=== PATIENT | female | born 1955 | race Caucasian/White ===

== ENCOUNTER 2024-09-11 06:31 | Observation (INO) ==
--- NOTE | 2024-08-09 10:17 | PAT Medication Instructions ---
Medication Instructions Date of Service August 09, 2024 Home Medications Medication Instructions Recorded epinephrine 0.3 mg/0.3 mL 0.3 mg (0.3 mL) IM .COMPLEX PRN 06/17/23 injection, auto-injector anaphylaxis #2 ea rosuvastatin 5 mg tablet See Rx Instructions .Route 05/20/24 .COMPLEX #36 tabs Wheeled Walker #1 ea 07/12/24 multivitamin 1 tab PO QAM xqsns-5k-dpb-epa-fish oil 120 mg-180 mg-60 mg-1,200 mg capsule, DR (Fish Oil) 1 cap PO QAM aspirin 81 mg tablet,delayed release 81 mg PO QAM glucosamine-chondroitin 250 mg-200 mg tablet (Osteo Bi-Flex) 1 tab PO DAILY epinephrine 0.3 mg/0.3 mL injection, auto-injector 0.3 mg (0.3 mL) IM .COMPLEX PRN Saccharomyces boulardii 250 mg capsule (Daily Probiotic (S. boulardii)) 250 mg PO BID rosuvastatin 5 mg tablet See Rx Instructions .Route .COMPLEX coenzyme Q10 100 mg capsule (Co Q-10) 100 mg PO DAILY psyllium husk 0.52 gram capsule 0.52 g PO PM Continue as directed rosuvastatin 5 mg tablet See Rx Instructions .Route .COMPLEX epinephrine 0.3 mg/0.3 mL injection, auto-injector 0.3 mg (0.3 mL) IM .COMPLEX PRN(if needed) ASK your prescriber and surgeon aspirin 81 mg tablet,delayed release 81 mg PO QAM STOP taking 2 weeks before surgery (or as soon as possible if surgery is within 2 weeks) tmwcr-6f-dik-epa-fish oil 120 mg-180 mg-60 mg-1,200 mg capsule, DR (Fish Oil) 1 cap PO QAM glucosamine-chondroitin 250 mg-200 mg tablet (Osteo Bi-Flex) 1 tab PO DAILY coenzyme Q10 100 mg capsule (Co Q-10) 100 mg PO DAILY DO NOT take the morning of surgery multivitamin 1 tab PO QAM Saccharomyces boulardii 250 mg capsule (Daily Probiotic (S. boulardii)) 250 mg PO BID Take evening before surgery Saccharomyces boulardii 250 mg capsule (Daily Probiotic (S. boulardii)) 250 mg PO BID psyllium husk 0.52 gram capsule 0.52 g PO PM Other Notes NOTHING TO EAT OR DRINK AFTER MIDNIGHT. If you have any questions please call us at [phone] or [phone] or [phone] or [phone]
--- NOTE | 2024-08-20 08:23 | Anesthesiology Consultation ---
Date of Service August 20, 2024 Assessment & Plan (1) Encounter for pre-operative examination: - Outpatient joint assessment: Patient is currently scheduled for inpatient pathway. If re-evaluated and patient/surgeon requests outpatient pathway, patient is not ideal candidate for outpatient joint program from anesthesia standpoint. - Case discussed in detail with Dr. Choudhury who advised patient is acceptable to proceed and nothing further is needed from his standpoint. Chart Review Chart Review: Acceptable Risk for Surgery and Patient seen in Pre Admission Testing Teaching & Discussion Pre-Anesthesia Teaching/Discussion Notes: Instructed NPO after midnight before surgery, except medications with 15 cc of water. Medication instructions provided according to the PAT guidelines. History Surgery Operation Date: 09/11/24 10:40 Proposed Procedures p Right Total Knee Arthroplasty - Alexi Alvares MD Height/Weight Height: 5 ft 4 in Weight: 103.4 kg Allergies Allergy/AdvReac Type Severity Reaction Status Date / Time No Known Allergies Allergy Verified 08/07/24 10:59 Medications Home Medications Medication Instructions Recorded Confirmed Last Taken multivitamin 1 tab PO QAM 08/21/19 08/07/24 03/05/23 lwjrk-6f-quv-epa-fish oil 120 1 cap PO QAM 08/21/19 08/07/24 03/05/23 mg-180 mg-60 mg-1,200 mg capsule, (Fish Oil) aspirin 81 mg tablet,delayed 81 mg PO QAM 03/06/23 08/07/24 03/05/23 release glucosamine-chondroitin 250 mg-200 1 tab PO DAILY 03/06/23 08/07/24 03/05/23 mg tablet (Osteo Bi-Flex) epinephrine 0.3 mg/0.3 mL 0.3 mg (0.3 mL) IM .COMPLEX PRN 06/17/23 08/07/24 Unknown injection, auto-injector anaphylaxis #2 ea Saccharomyces boulardii 250 mg 250 mg PO BID 03/19/24 08/07/24 Unknown capsule (Daily Probiotic (S. boulardii)) rosuvastatin 5 mg tablet See Rx Instructions .Route 05/20/24 08/07/24 Unknown .COMPLEX #36 tabs Wheeled Walker #1 ea 07/12/24 07/12/24 Unknown coenzyme Q10 100 mg capsule (Co 100 mg PO DAILY 08/07/24 08/07/24 Unknown Q-10) psyllium husk 0.52 gram capsule 0.52 g PO PM 08/07/24 08/07/24 Unknown phytosterol 300 mg-pantethine 100 cap PO 08/20/24 Unknown mg capsule (CholestOff Complete) Additional Notes: Patient was instructed on holding cholestoff complete 2 weeks before surgery. This was also written on provided medication instructions. She denied additional medications or supplements. Past Medical History Medical History Eczema History of asthma resolved, no inhalers per pt History of COVID-19 (~2019) denies hospitalization, symptoms resolved History of ductal carcinoma in situ (DCIS) of breast "Abnormal right breast mammogram Status post stereotactic vacuum-assisted core biopsy 02/06/2014 revealing DCIS Estrogen receptor positive and progesterone receptor positive Status post needle localization partial mastectomy 02/26/2014 revealing DCIS, stage pTisNX Status post completion of radiation therapy 05/31/2014 received 6120 cGy" denies limb restriction Hyperlipidemia Mitral regurgitation mild per 08/2023 echo Patient denies h/o stroke, seizures, heart attack, heart failure, DM, HTN, blood clots/DVTs or blood transfusions. Exercise / Class Metabolic Activity II 4-5 Yardwork/Stairs/Walk up hill (denies chest discomfort or shortness of breath with one flight of stairs) Past Family History Family History Father Myocardial infarction Brother Prostate cancer Denies family history of Ovarian cancer Diabetes Breast cancer Colorectal cancer Hypertension Past Surgical History Surgical History H/O breast biopsy (~1996) right History of ankle surgery left History of bilateral tubal ligation History of colonoscopy History of laparoscopy Hx of LASIK Hx of vein stripping S/P cataract surgery bilat S/P lumpectomy, right breast (02/26/14) S/P SCOTT-BSO Past Anesthesia History No Hx of Anesthesia Complications and No Family Hx of Anesthesia Complications History of PONV No Hx of PONV and No Hx of Motion Sickness Social History Smoking Status: Never smoker Do You Dip or Chew Tobacco: No Hx Alcohol Use: Yes Alcohol type: beer and wine alcohol intake frequency: holidays/special occasions only Hx Substance Use: No substance use type: does not use Review of Systems Snoring, denies witnessed apneas. Patient reports onset of abdominal pain, diarrhea and headache 4 days ago with resolution 2-3 days later-states symptoms fully resolved. Patient denies chest pain, shortness of breath, dyspnea on exertion, reflux, fever, chills, cough, wheezing, or palpitations. Physical Exam Vital Signs Vitals BP 148/80 P 62 TEMP 98.1 SP02 94% on RA RESP 19 Physical Patient resting comfortably in chair in no acute distress, alert and oriented, responding appropriately throughout visit Full cervical extension range of motion without pain TMD 3 finger breadths Mallampati Score 3 Dentition: several implants, several caps/crowns, denies chipped or loose teeth, or bridges Lungs: normal respiratory effort. Good air movement, clear throughout to auscultation, no adventitious breath sounds Cardiac: regular rate and rhythm, 2/6 systolic murmur, no gallops or rubs Carotid arteries: negative bruit bilat Lab Results Anesthesia Preop Results Results Anesthesia Widget: WBC 5.24 K/ul (4.8-10.8) 08/20/24 Hgb 13.7 g/dl (12.0-16.0) 08/20/24 Hct 42.3 % (37.0-47.0) 08/20/24 Plt 191 K/uL (130-400) 08/20/24 Na 142 mmol/L (136-145) 08/20/24 K 4.4 mmol/L (3.5-5.1) 08/20/24 Cl 105 mmol/L (98-107) 08/20/24 CO2 32 mmol/L (21-32) 08/20/24 BUN 13 mg/dl (6-23) 08/20/24 Creat 0.69 mg/dl (0.6-1.2) 08/20/24 Glucose Level 105 mg/dl (70-99(Fasting)) H 08/20/24 PT 10.8 Seconds (9.0-12.0) 08/20/24 PTT 26 Seconds (21-31) 08/20/24 INR 1.0 (0.9-1.1) 08/20/24 Blood Type A Positive 08/20/24 Antibody Screen NEGATIVE 08/20/24 Testing Electrocardiogram Date: 08/20/24 Sinus bradycardia, rate 58 bpm Left anterior fascicular block Moderate voltage criteria for LVH, may be normal variant Possible anterior infarct, age undetermined Chest X-Ray Date: 08/20/24 No significant abnormality detected. Echocardiogram Date: 09/01/23 EF 55-60% No regional wall motion abnormalities Mild cLVH Mild mitral regurgitation Grade I diastolic dysfunction
--- NOTE | 2024-09-03 17:27 | History & Physical Report ---
Date of Service September 03, 2024 Assessment & Plan (1) Degenerative arthritis of knee, bilateral: 68-year-old female with advanced bilateral knee DJD right side more symptomatic than the left. She has failed conservative treatment. She would like to proceed with right knee replacement. Plan: Fannie to take her to the operating room and do a right knee replacement. The risks Mente this procedure explained and she understands. Informed consent was obtained. She will stay in the hospital overnight. Likely discharge to home with some home health and her 's assistance. He is apparently retiring here shortly and should be available to help. (2) History of breast cancer: (3) Hyperlipidemia: History of Present Illness Chief Complaint: . Bilateral knee pain right side greater than the left. Primary Care Provider: Bobbi Morel MD . Patient is a 68-year-old female referred by Dr. Henderson for treating her knees. She is got a long history of bilateral knee pains and discomfort describes gotten worse over time. She has been through extensive conservative treatment which would become less successful. Injections do not help much. She feels that this contributes some of her weight gain of about 12 pounds over the past several months to a year. She had viscosupplementation which did not help at all. The pain is global. The more she is up and onto more it hurts. Is limiting her activities. She like to have her knee fixed. Allergies Allergy/AdvReac Type Severity Reaction Status Date / Time No Known Allergies Allergy Verified 08/07/24 10:59 Home Medications Medication Instructions Recorded Confirmed Type multivitamin 1 tab PO QAM 08/21/19 08/07/24 History wjsjp-0p-tng-epa-fish oil 120 1 cap PO QAM 08/21/19 08/07/24 History mg-180 mg-60 mg-1,200 mg capsule, (Fish Oil) aspirin 81 mg tablet,delayed 81 mg PO QAM 03/06/23 08/07/24 History release glucosamine-chondroitin 250 mg-200 1 tab PO DAILY 03/06/23 08/07/24 History mg tablet (Osteo Bi-Flex) epinephrine 0.3 mg/0.3 mL 0.3 mg (0.3 mL) IM .COMPLEX PRN 06/17/23 08/07/24 Rx injection, auto-injector anaphylaxis #2 ea Saccharomyces boulardii 250 mg 250 mg PO BID 03/19/24 08/07/24 History capsule (Daily Probiotic (S. boulardii)) rosuvastatin 5 mg tablet See Rx Instructions .Route 05/20/24 08/07/24 Rx .COMPLEX #36 tabs Wheeled Walker #1 ea 07/12/24 07/12/24 Rx coenzyme Q10 100 mg capsule (Co 100 mg PO DAILY 08/07/24 08/07/24 History Q-10) psyllium husk 0.52 gram capsule 0.52 g PO PM 08/07/24 08/07/24 History phytosterol 300 mg-pantethine 100 cap PO 08/20/24 History mg capsule (CholestOff Complete) Past Med/Surg History Problem List Encounter for pre-operative examination Degenerative arthritis of knee, bilateral History of breast cancer Hyperlipidemia Eczema (Chronic) Medical History Mitral regurgitation mild per 08/2023 echo Hyperlipidemia History of COVID-19 (~2019) denies hospitalization, symptoms resolved History of ductal carcinoma in situ (DCIS) of breast "Abnormal right breast mammogram Status post stereotactic vacuum-assisted core biopsy 02/06/2014 revealing DCIS Estrogen receptor positive and progesterone receptor positive Status post needle localization partial mastectomy 02/26/2014 revealing DCIS, stage pTisNX Status post completion of radiation therapy 05/31/2014 received 6120 cGy" denies limb restriction History of asthma resolved, no inhalers per pt Eczema Surgical History History of bilateral tubal ligation S/P cataract surgery bilat Hx of vein stripping History of ankle surgery left History of colonoscopy History of laparoscopy Hx of LASIK H/O breast biopsy (~1996) right S/P SCOTT-BSO S/P lumpectomy, right breast (02/26/14) Family History Father Myocardial infarction Brother Prostate cancer Denies family history of Ovarian cancer Diabetes Breast cancer Colorectal cancer Hypertension Social History Smoking Status: Never smoker Second Hand Exposure: No; Do You Dip or Chew Tobacco: No; Tobacco Cessation Education Requested by Patient: No Hx Alcohol Use: Yes Alcohol type: beer and wine Alcohol Intake Frequency: 2-4 x/Month Hx Substance Use: No Preferred Language: Belarusian Communication Ability: Effective Visual Impairment: No Limitations Hearing Ability: Normal Wharf Laborer Required: No Beliefs That Will Affect Care: None marital status: Current Living Situation: Spouse current occupational status: retired current occupation: used to own and operate storage/apartments How many Children do You have: 3 Other Information That Helps Us Care for You: No Feels Safe at Home: Yes Safety Concerns: Feels Safe At This Time Childhood Exposure to Second-Hand Smoke: No Diet: regular caffeine: Yes during the past year weight has: decreased > 10 lbs Dental Care, Regularly: Yes Physical Activity Frequency: Daily Seatbelt Use: always Sunscreen Use: No Assistive Devices: Glasses Review of Systems All systems reviewed & are unremarkable except as noted in HPI & below. Physical Exam . Physical examination was a pleasant middle-aged female but looks be in pretty good health. Examination both rogdi-xdjn-hxo patient ambulates independently. Got varus alignment to both knees. She got bony perjury medially. Some slight tenderness medially on both sides. Range of motion is symmetric with about a 5 degree flexion contracture and bends to 120 bilaterally. No particular pain with hip motion on either side. She is neurologically intact. Constitutional WD/WN, vitals as above Neck trachea midline, no thyromegaly Respiratory normal respiratory effort, lungs clear to auscultation Cardiovascular RRR, no murmur, no edema Gastrointestinal (Abdomen) normal bowel sounds, soft, nontender, no hepatosplenomegaly Results & Data Results & Data Laboratory Results . Diagnostic Findings . X-rays of the knees reveal advanced bilateral knee DJD. She got complete loss of medial joint space in both knees. She has subchondral sclerosis. Osteophytes primarily medially. On x-ray of the severity is pretty equal. She got tricompartment disease. PG Care Time/CCT Total # of Minutes Spent Total Time Spent with Patient: Total time spent is greater than 50% in coordination of care (as documented) at patient's floor/unit and/or counseling patient: Coding Level of Care Code None Diagnoses Degenerative arthritis of knee, bilateral M17.0 History of breast cancer Z85.3 Hyperlipidemia E78.5
[2024-09-11] MEDS ORDERED: ROPIVACAINE 0.5% 5 MG/ML 30 ML VIAL ONE (06:32)
[2024-09-11] MEDS ORDERED: BUPIVACAINE 0.5 % 5 MG/1 ML PF 10ML VIAL ONE (06:32)
--- OUTSIDE RECORDS SUMMARY | 2024-09-11 06:40 | External Medical Summary | Summary of Care ---
Author Name Unknown Organization [facility] Address [address] [place] [address] Phone [phone] Care Team Providers Care Road Mechanic Name Role Phone Bobbi Morel MD Primary Care Provider Encounter Details Date Type Department Care Team (Late st Contact Info) Description 08/27/2024 Population Health External Data Unspecified Department Allergies No known active allergiesdocumented as of this encounter (statuses as of 08/27/2024) Medications LORATADINE 10 MG PO TABS One pill by mouth once a day as needed for allergies 0 Active FISH OIL 1000 MG PO CPDR 1 daily Active OSTEO BI-FLEX ADV TRIPLE ST PO TABS 1 day Ac tive VITAMIN B-6 100 MG PO TABS 1 day Active HAIR/SKIN/NAILS/B IOTIN PO TABS 1day Active ASPIRIN 81 MG PO TABS 1 daily Active clobetasol propionate (TEMOVATE) 0.05 % ointmentIndicatio ns:Lipodermatoscl erosis,Eczema of both hands Apply to hand rash and R lower leg (if desired) 2x daily until resolved (hands)/ improved (R lower leg) 60 g 0 5 Active albuterol (VENTOLIN HFA) 108 (90 BASE) MCG/ACT inhalerIndication s:Asthma, non-allergic, with acute exacerbation Inhale 2 Puffs by mouth 4 times a day. 18 g 5 6 Active Tamoxifen Citrate 20 MG TabletIndications :Ductal carcinoma in situ of right breast Take 1 Tab by mouth daily. 90 Tab 3 6 Active documented as of this encounter (statuses as of 08/27/2024) Active Problems Problem Noted Date Diagnosed Date Encounter for examination fo r normal comparison and control in clinical research program 03/26/2014 Overview (11/24/2020): Trial participant as of: 03/19/14 Project #:[id number] Project Name: NSABP B43: A Phase III Clinical Trial Comparing Trastuzumab Given Concurrently with Radiation Therapy and Radiation Therapy Alone for Women with HER2-Positive Ductal Carcinoma In Situ Resected by Lumpectomy PI Name: Quoc Hairston MD PI CRC Name:[facility] Contact PI or CRC regarding any serious medical event, ER visit, hospitalization, if new Rx given, or billing question Diagnosis changed due to Research Module. Go to Snapshot for study details. Ductal carcinoma in situ of right breast 014 Intermittent asthma with reliever use up to twic e per week 01/29/2010 Overview (01/29/2010): Per Asthma Taxonomy Obesity, Class III, BMI 40-49.9 (morbid obesity) 11/04/2009 Overview (11/04/2009): Per Obesity Taxonomy DYSLIPIDEMIA, GOAL TO BE DETERMINED 07/15/2009 Overview (07/15/2009): Per Lipid Taxonomy. DISLOC SHOULDER NOS-CLOS 10/24/2003 Varicose vein of leg 04/17/2003 Other allergic rhinitis 08/10/2002 Overview (05/31/2017): ICD-10 update of inactive term Menopause 02/06/2002 TOPICAL MED DERMATITIS 02/06/2002 GENERALIZED ANXIETY DIS SYMPTOMS IN BREAST NEC FX TRIMALLEOLAR-CLOSED documented as of this encounter (statuses as of 08/27/2024) Resolved Problems Problem Noted Date Diagnosed Date Resolved Date Asthma with severity to be determined 01/29/2010 06/20/2012 Overview (11/17/2015): Per Asthma Taxonomy ICD-10 update of inactive term ADVANCE DIRECTIVE INFORMATION 05/26/2005 06/11/2024 Overview (05/26/2005): No, Advance Directive brochure given to patient at prior appointment. Morbid obesity, BMI not known 02/24/2005 11/04/2009 Overview (11/04/2009): Per Obesity Taxonomy INTRINSIC ASTHMA UNSPEC 02/24/200501/07 Asthma exacerbation, non-allergic 08/10/2002 01/29/2010 PURE HYPERCHOLESTEROLEM 02/06/200203/2009 Overview (07/15/2009): Per Lipid Taxonomy. Other disorder of menstruati on and other abnormal bleeding from female genital tract 02/22/2001 09/19/2001 Excessive menstruation 02/22/200109/19 documented as of this encounter (statuses as of 08/27/2024) Immunizations Name Administration Dates Next Due Pneumococcal Polysaccharide PPV23 (Pneumovax) TDAP, Age 7 and older, IM (Adacel) 10/24/2008 documented as of this encounter Social History Tobacco Use Types Packs/Day Years Used Date Smoking Tobacco: Never Smokeless Tobacco: Never Alcohol Use Standard Drinks/Week Comments Yes 0 (1 standard drink = 0.6 oz pur e alcohol) very little Comments No Sex and Gender Information Value Date Recorded Sex Assigned at Not on file Legal Sex Female 5:27 AM EST Gender Identity Not on file Sexual Orientation Not on file Occupation Industry Job Start Date Job End Date self employed Not on file Not on file Not on file Not on file Not on file Not on file Not on file documented as of this encounter Plan of Treatment Health Maintenance Due Date Last Done Comments Depression Screening 1968 Hepatitis C Screening 1974 Cologuard 2001 Colonoscopy 2001 Colorectal Cancer Screening 2001 Fecal Occult Blood Test 2001 Sigmoidoscopy 2001 *SPIROMETRY ONCE FOR ASTHMA-ADULT 09/26/2016 Zoster Vaccines (2 of 3) 06/30/2017 05/05/2017 Diabetes Screening 01/23/2018 01/23/2015, 0 02/18/2014, 01/15/2013, Additional history exists Pneumococcal Vaccine: 50+ Years (2 of 2 - PCV) 05/05/2018 05/05/2017, 12/26/2008 DTap/Tdap Vaccines (2 - Td or Tdap) 10/24/2018 10/24/2008 Lipid Panel 01/24/2020 01/23/2015, 12/07, 10/20/2007, Additional history exists COVID-19 Vaccine ( season) 2024 06/17/2023, 05/27/2022, 05/25/2021, Additional history exists Influenza Vaccine (FLU shot) (#1) 2024 06/17/2023 Mammogram 05/25/2025 05/25/2024, 03/08, 01/01/2022, Additional history exists DXA Scan 07/20/2032 07/20/2022, 07/20/2022 HPV (Gardasil) Vaccine Aged Out No lo nger eligible based on patient's age to complete this topic Hepatitis B Vaccine Aged Out No longe r eligible based on patient's age to complete this topic MENINGOCOCCAL (MENACTRA/MENVEO) Aged Out No longer eligible based on patient's age to complete this topic documented as of this encounter Medical Devices Not on filedocumented as of this encounter Care Teams Road Mechanic Relationship Specialty Start Date End Date Bobbi Morel MD [id number] [place] [address] PCP - General Family Medicine 07/20/22 documented as of this encounter
[2024-09-11] MEDS: LR 500ML BOLUS, THEN 15ML/HR IV SCH (07:09)
[2024-09-11] MEDS: ACETAMINOPHEN 500 MG TAB PO SCH ×2 (07:10→13:18)
[2024-09-11] MEDS: METOCLOPRAMIDE HCL 10 MG TABLET PO SCH (07:10)
[2024-09-11] MEDS: dexAMETHasone**PF** 10 MG/ML VIAL IV SCH (07:10)
[2024-09-11] MEDS: CeleBREX 200 MG CAP PO SCH (07:10)
[2024-09-11] MEDS: LR 60ML/HR IV SCH (07:10)
[2024-09-11] MEDS: FAMOTIDINE 20 MG TAB PO SCH (07:10)
[2024-09-11] MEDS ORDERED: MIDAZOLAM HCL 1 MG/ML 2ML VIAL ONE (07:23)
[2024-09-11] MEDS ORDERED: fentaNYL citrate PF 100 MCG/2 ML VIAL ONE (07:23)
[2024-09-11] MEDS ORDERED: ATROPINE SULFATE 0.1 MG/ML 10ML SYR IV PRN (08:16)
[2024-09-11] MEDS ORDERED: ePHEDrine sulfate 50 MG/ML AMP IV PRN (08:16)
[2024-09-11] MEDS ORDERED: fentaNYL citrate PF 100 MCG/2 ML VIAL IV PRN (08:16)
--- NOTE | 2024-09-11 08:47 | History & Physical Bridge Note ---
Date of Service September 11, 2024 History & Physical Bridge Note I have examined the patient, reviewed the History & Physical and in the interval since the performance of the History & Physical I have noted the following changes of clinical significance: no changes noted
[2024-09-11] MEDS: ceFAZolin 2000MG 2,000 MG/15 ML SYR IV SCH ×2 (09:13→17:23)
[2024-09-11] MEDS ORDERED: PROPOFOL IV EMULSION 10 MG/ML 100 ML VIAL IV ONE (09:28)
[2024-09-11] MEDS: ORTHO JOINT ANESTHETIC ONE (09:53)
[2024-09-11] MEDS: ROPIV 0.5% 246mg, Ketorolac 30mg, EPINEPHrine 0.5mg in NSS INFIL SCH (09:53)
[2024-09-11] MEDS: TRANEXAMIC ACID 1,000 MG **IV Intra-op IV SCH (10:11)
--- NOTE | 2024-09-11 11:00 | Operative Report ---
PG Post Operative Report Pre & Post Diagnosis Operation Date: 09/11/24 08:50 Pre-Op Diagnosis: Right Knee Degenerative Joint Disease Post-Op Diagnosis: Right Knee Degenerative Joint Disease I identified the patient and participated in the time-out.: Yes Procedure Operation Date: 09/11/24 08:50 Actual Procedures p Right Total Knee Arthroplasty(Right) - Alexi Alvares MD Surgeon Alexi Alvares MD Personnel Associate Matt Almaguer PA-C Estimated Blood Loss 50 Findings Consistent with Post-Op Diagnosis Operative findings reveal advanced right knee DJD. She had pretty extensive grade 4 cjfl-ke-aspo disease in all 3 compartments most severe in the medial side. Moderate-sized joint effusion. Specimens Right knee sent for pathology. Anesthesia Type Spinal MAC Complications none Disposition Accompanied Patient To Recovery: No Indications Patient is a 68-year-old female whose had a several year history of increasing bilateral knee pain discomfort right side greater than the left. She been through extensive conservative treatment the past which became less successful. X-rays show advanced knee DJD. She elected proceed with total knee arthroplasty. Description of Procedure Operative implants consist of: 1 Biomet Vanguard size 67.5 right posterior stabilized femoral component. 2. Biomet size 71 tibial tray. 3. 10 mm posterior stabilized polyethylene insert. 4. 31 x 8 all poly patella. The patient was taken to the op room, identified, placed on the operative table in the supine position. All conductors were appropriately padded. IV antibiotics fibra anesthesia team. A spinal anesthetic and adductor canal block had been provided in the holding area. A Mcintyre catheter was placed in sterile fashion. A right thigh turn was then placed. The right lower extremity was then prepped and draped in usual sterile fashion. The right leg was elevated and exsanguinated with the use of an Esmarch and a turn was placed at 300 mmHg. An anterior approach of the right knee was then performed through a longitudinal incision centered over the patella. Sharp dissection was got through subcutaneous tissue down to the extensor mechanism. A medial parapatellar arthrotomy incision was made. Some subperiosteal dissection was carried out medially. The fat pad was resected from Neath patella tendon. The lateral patellofemoral ligament was released. Patella subluxated laterally and the knee was flexed. The osteophytes taken off distal femur. The ACL PCL then released from the distal femur. The tibia was subluxated anteriorly. The external tibial alignment jig was then placed on the interface the tibia and adjusted 14 mm medially. The proximal tibial cut was made remove out of millimeter or 2 of bone from the medial side. Some osteophytes taken off medially. The tibia sized to a size 71. Attention drawn the femur. The distal femur then with a sharp drill. Intramedullary canal was suction. A right 5 degree valgus cutting guide was placed. The distal femoral cutting block was pinned in place. Distal femoral cut was made take an additional 3 mm of bone off distal femur. The femur was then sized to a size 67.5. The AP cutting block was pinned parallel to the epicondylar axis which was 3 degrees of external rotation. The anterior cut, anterior chamfer, posterior cut, posterior chamfer cuts were made. The box cutting guide was placed and just slight lateral and the box cut was made. The knee was flexed. The remnants of the medial and lateral menisci were excised. The osteophytes were taken off the posterior aspect the femur. A trial femoral component was placed. The tibial tray was pinned Neli external rotation and the drill and stem punch were used to create defect in proximal tibia for the tibial tray. The knee was then trialed and the 10 mm insert fit most appropriately. Attention then drawn toward the patella. The patella was cleaned of all soft tissue. Patella thickness measured 22 mm in thickness and was cut down to 14. Was sized to a size 31 patella. The lug holes were drilled for 31 patella. The lateral osteophytes removed. Patella button was placed. Knee was taken through range of motion and the patella tracked nicely with no thumbs test. Attention was then drawn toward placing the permanent components. All trial components were removed. A bone plug was placed into this femur limit blood loss. A double batch Palacos G cement was mixed. Biomet ipsyguard size 67.5 right posterior stabilized femoral component, size 71 tibial tray, a 10 mm posterior stabilized polyethylene insert, and a 31 x 8 all poly patella was then cemented in place. The knee was brought out into full extension till cement hardened. Final cement check was then performed. The pericapsular tissues were injected with total of 100 cc of Ortho mix. The patient did receive 1 g tranexamic acid. The tourniquet was then let down for final tourniquet time of 51 minutes. Hemostasis assured use electrocautery. Extensor Meclomen then closed with combination 1 PDS suture and 1 Vicryl suture in a [id number] fashion. Extensor Metros were checked found to be intact with subcutaneous tissue then closed with 2 Dexon suture in a buried interrupted fashion the skin was closed skin lucien. Leg was then cleaned and dried and a sterile dressing with Xeroform, 4 fours, sterile cast padding, Yaya bandage were applied. Patient was then transferred to the recovery room in stable condition. The patient tolerated the procedure well and there were no complications. Matt Almaguer, my physician product development assistant, was present for the entire procedure. His assistance was essential and required for appropriate patient positioning, prepping and draping, surgical exposure, performing the technical details of the operation, placement the implants, closure of the wound, and placement of the sterile bandage. I attest to the content of the Intraoperative Record and any orders documented therein. Any exceptions are noted below.
--- NOTE | 2024-09-11 11:14 | XRay Report ---
XR knee RT 1 or 2V routine CLINICAL HISTORY: Surgical Post Op COMPARISON: None FINDINGS: Right knee prosthesis shows no hardware complication. There is expected soft tissue gas. S kin lucien are present. IMPRESSION: Unremarkable postoperative exam. ACT 112: Negative or not required by law. Electronically signed by: Quoc Jeronimo M.D. 09/11/2024 11:12 AM
--- NOTE | 2024-09-11 12:25 | Anesthesiology Progress Note ---
Date of Service September 11, 2024 Anesthesia Post Procedure Vital Signs Vital Signs: Temp Pulse Resp BP BP Pulse Ox O2 Del Method 09/11/24 11:50 36.4 C L 65 19 121/65 93 Room Air 09/11/24 11:40 58 L 12 112/59 L 96 Room Air 09/11/24 11:30 60 19 124/64 95 Room Air 09/11/24 11:20 60 16 133/62 95 Room Air 09/11/24 11:10 60 13 123/55 L 97 Oxymask 09/11/24 11:00 63 12 122/54 L 97 Oxymask 09/11/24 10:54 36.4 C L 64 15 125/52 L 95 Oxymask 09/11/24 06:59 36.9 C 70 22 150/87 H 95 Room Air O2 Flow Rate 09/11/24 11:50 09/11/24 11:40 09/11/24 11:30 09/11/24 11:20 09/11/24 11:10 2 09/11/24 11:00 6 09/11/24 10:54 6 09/11/24 06:59 Pain Intensity Right Knee: Pain Intensity: 4 Notes Mental Status: alert / awake / arousable Patient Amnestic to Procedure: Yes Nausea / Vomiting: adequately controlled Pain: adequately controlled Airway Patency, RR, SpO2: stable & adequate BP & HR: stable & adequate Hydration State: stable & adequate Neuraxial Anesthesia: was administered and sensory block is resolving Anesthetic Complications: no major complications apparent
[2024-09-11] MEDS ORDERED: METOCLOPRAMIDE HCL INJ 5 MG/ML 2 ML VIAL IV PRN (12:30)
[2024-09-11] MEDS ORDERED: ALUMINUM/MAGNESIUM SUSP 30 ML UDC PO PRN (12:30)
[2024-09-11] MEDS ORDERED: ONDANSETRON INJ 2 MG/ML 2 ML VIAL IV PRN (12:30)
[2024-09-11] MEDS ORDERED: bisacodyL 10 MG SUPP PR PRN (12:30)
[2024-09-11] MEDS ORDERED: HYDROmorphone INJ 0.5 MG/0.5 ML SYR IV PRN (12:30)
[2024-09-11] MEDS ORDERED: NALOXONE HCL 0.4 MG/1 ML VIAL/CARP IV PRN (12:30)
[2024-09-11] MEDS ORDERED: MAGNESIUM HYDROXIDE SUSP 30 ML UDC PO PRN (12:30)
[2024-09-11] MEDS ORDERED: EPINEPHrine INJ 1 MG/ML AMP IM PRN (13:17)
[2024-09-11] MEDS: KETOROLAC TROMETHAMINE 15 MG/ML VIAL IV SCH (13:18)
[2024-09-11] MEDS: oxyCODONE HCL IR 5 MG TAB (IMMEDIATE RELEASE) PO PRN (16:39)
[2024-09-11] MEDS: ASCORBIC ACID 500 MG TAB PO SCH (17:23)
[2024-09-11] MEDS: TRANEXAMIC ACID / 0.7% NACL 1,000 MG/100 ML BAG IV SCH (17:37)
[2024-09-11] MEDS: ASPIRIN 81 MG ECTAB PO SCH (20:57)
[2024-09-11] MEDS: DOCUSATE SODIUM 100 MG CAP PO SCH (20:58)
[2024-09-11] MEDS: SENNA 8.6 MG TAB PO SCH (20:58)
[2024-09-11] MEDS ORDERED: SENNA 8.6 MG TAB PO SCH (21:00)
[2024-09-11] MEDS ORDERED: PSYLLIUM HUSK 0.52 GM PO SCH (21:00)
[2024-09-11] MEDS: SACCHAROMYCES BOULARDII 250 MG CAP PO SCH (21:00)
[2024-09-12 07:30] VITALS: PULSE 62; RESP 18; TEMP 97.7; O2SAT 97
[2024-09-12] MEDS: dexAMETHasone 10 MG in SYRINGE 0 ML IV SCH (07:43)
[2024-09-12] MEDS: MULTIVITAMIN TAB PO SCH (07:44)
[2024-09-12 08:56] LABS: Hematocrit (blood only) 35.1 % (37.0-47.0); Hemoglobin 11.4 g/dl (12.0-16.0); Mean Corpuscular Hemoglobin 30.2 pg (25.0-34.0); Mean Corpuscular Hgb Conc 32.5 g/dL (32.0-36.0); Mean Corpuscular Volume 92.9 fL (80.0-100.0); Mean Platelet Volume 12.7 fL (9.4-12.4); Platelet Count 172 K/uL (130-400); RDW Coefficient of Variation 13.3 % (11.5-14.5); RDW Standard Deviation 45.4 fL (36.4-46.3); Red Blood Count 3.78 M/uL (4.20-5.40); White Blood Count 14.33 K/ul (4.8-10.8)
[2024-09-12] MEDS ORDERED: NON-FORMULARY MEDICATION (Coenzyme Q10 [Co Q-10] 100 mg Capsule) PO SCH (09:00)
[2024-09-12] MEDS ORDERED: NON-FORMULARY MEDICATION (Multivitamin Tablet) PO SCH (09:00)
[2024-09-12] MEDS ORDERED: OMEGA DHA EPA FISH OIL PO SCH (09:00)
[2024-09-12] MEDS ORDERED: [UNRECOGNIZED DRUG - OTHER] PO SCH (09:00)
[2024-09-12] MEDS ORDERED: NON-FORMULARY MEDICATION (Glucosamine-Chondroitin [Osteo Bi-Flex] 250-200 mg Tablet) PO SCH (09:00)
[2024-09-12 09:03] LABS: BUN Creatinine Ratio 23.2 (10-20); Calcium 9.3 mg/dl (8.6-10.3); Creatinine Clr Calc Pharmacy 93.4 ml/min; Potassium 4.1 mmol/L (3.5-5.1)
[2024-09-12 09:33] VITALS: BP 150/87
--- NOTE | 2024-09-12 09:40 | Orthopedic Progress Note ---
Date of Service September 12, 2024 Assessment & Plan (1) Status post total knee replacement, right: (2) Aftercare following joint replacement surgery: Plan 68-year-old woman POD# 1 s/p right total knee replacement, doing well overall. Pain is relative well-controlled. Medically stable. Postop x-rays well- appearing. She is neurologically intact. Plan: 1. DVT prophylaxis w/ TEDs, SCDs, ASA 81 mg BID. 2. PT/OT as tolerated. WBAT on the RLE. Encourage heel slides, SLR, full knee extension w/ quad sets. 3. Pain control doing well with current pain regimen. 4. Dressing change POD#2 per discharge instructions. 5. Disposition - plan to D/C home w/ home health later today once cleared by PT/OT. 6. F/u 2 weeks post-op w/ orthopedics (Dr. Alvares's team), or as previously scheduled, for first post-op visit. Subjective Patient is POD# 1 s/p right total knee arthroplasty by Dr. Dale on 10/02. Patient says her pain is relatively well-controlled this morning. Denies CP, SOB, N/V, R LE paresthesia. She has [facility] arranged to come to the house for therapy. Patient says that she will be ready to go home later today. Review of Systems All systems reviewed & are unremarkable except as noted in HPI & below. Physical Exam GENERAL: AA&Ox3, NAD. Pleasant, affect is calm. Sitting in bed and appears comfortable. RESPIRATORY: Normal respiratory effort with no signs of distress. CHEST/AXILLA: Chest movement symmetrical. No deformities noted. CARDIOVASCULAR: No edema noted. SKIN: [place], warm and dry. MS/EXTREMITY: Knee dressing & LISETH wrap c/d/i. BRADY hose donned to contralateral LE. + ankle dorsi/plantarflexion. NVI distally. Calf soft/NT. PT/DP pulses intact, 2+. Performs quad set and minimally able to perform SLR with extensor lag. Results & Data Results & Data Laboratory Results Laboratory Results - last 24 hr 09/12/24 08:19 WBC 14.33 H RBC 3.78 L Hgb 11.4 L Hct 35.1 L MCV 92.9 MCH 30.2 MCHC 32.5 RDW Std Deviation 45.4 RDW Coeff of Mala 13.3 Plt Count 172 MPV 12.7 H Sodium 139 Potassium 4.1 Chloride 104 Carbon Dioxide 30 Anion Gap 5 BUN 16 Creatinine 0.69 Est Cr Clr Drug Dosing 93.4 eGFR 95.06 BUN/Creatinine Ratio 23.2 H Glucose 150 H Calcium 9.3 Diagnostic Findings . PG Care Time/CCT Total # of Minutes Spent Total Time Spent with Patient: Total time spent is greater than 50% in coordination of care (as documented) at patient's floor/unit and/or counseling patient: Coding [place] [address] SUB INP/OBS CARE 09/01MIN Patient Type Established History Problem Focused Exam Problem Focused Medical Decision Making Straight Forward Diagnoses Status post total knee replacement, right Z96.651 Aftercare following right knee joint replacement surgery Z47.1; Z96.651 Joint replacement surgery site: knee Laterality: right (2) Aftercare following joint replacement surgery Joint replacement surgery site: knee Laterality: right Qualified Code(s): Z47.1 - Aftercare following joint replacement surgery; Z96.651 - Presence of right artificial knee joint
--- NOTE | 2024-09-12 16:32 | Discharge Summary ---
Date of Service September 12, 2024 Admission HPI (Per Admitting) 09/03/24 OV: Patient is a 68-year-old female referred by Dr. Henderson for treating her knees. She is got a long history of bilateral knee pains and discomfort describes gotten worse over time. She has been through extensive conservative treatment which would become less successful. Injections do not help much. She feels that this contributes some of her weight gain of about 12 pounds over the past several months to a year. She had viscosupplementation which did not help at all. The pain is global. The more she is up and onto more it hurts. Is limiting her activities. She like to have her knee fixed. Admission Exam (Per Admitting) Physical examination was a pleasant middle-aged female but looks be in pretty good health. Examination both [id number] patient ambulates independently. Got varus alignment to both knees. She got bony perjury medially. Some slight tenderness medially on both sides. Range of motion is symmetric with about a 5 degree flexion contracture and bends to 120 bilaterally. No particular pain with hip motion on either side. She is neurologically intact. Principal Diagnosis Same as "Discharge Diagnosis" noted below under Discharge Instructions. Discharge Exam GENERAL: AA&Ox3, NAD. Pleasant, affect is calm. Sitting in bed and appears comfortable. RESPIRATORY: Normal respiratory effort with no signs of distress. CHEST/AXILLA: Chest movement symmetrical. No deformities noted. CARDIOVASCULAR: No edema noted. SKIN: [place], warm and dry. MS/EXTREMITY: Knee dressing & LISETH wrap c/d/i. BRADY hose donned to contralateral LE. + ankle dorsi/plantarflexion. NVI distally. Calf soft/NT. PT/DP pulses intact, 2+. Performs quad set and minimally able to perform SLR with extensor lag. Discharge Data Procedures Performed Operation Date: 09/11/24 08:50 Actual Procedures p Right Total Knee Arthroplasty(Right) - Alexi Alvares MD Ordered Studies 09/11/24 05:00 US - OR guided needle placemen Routine Hospital Course (1) Status post total knee replacement, right: (2) Aftercare following joint replacement surgery: Joint replacement surgery site: knee Laterality: right Qualified Code(s): Z47.1 - Aftercare following joint replacement surgery; Z96.651 - Presence of right artificial knee joint Plan On September 11, 2024 she had arrived at [facility] operating room and underwent a right total knee replacement without complications. Patient had an adductor canal block and spinal anesthetic for the procedure. Postoperatively, patient was transferred to the general orthopedic floor in stable condition and eventually started onto aspirin 81 mg twice daily for DVT prophylaxis as appropriate. Patient's hospital course was uneventful. On postoperative day #1, patient's vital signs were stable and pain was well- controlled. Patient was able to participate well with physical therapy, safely performing the necessary ambulation and range of motion exercises and properly demonstrating ADL tasks. Patient was then discharged home in stable condition, with home health care services to begin. Patient will follow-up with orthopedics in 2 to 3 weeks for postoperative care. PG Care Time/CCT Total # of Minutes Spent Total Time Spent with Patient: Total time spent is greater than 50% in coordination of care (as documented) at patient's floor/unit and/or counseling patient: Discharge Plan Discharge Items Patient Disposition: Home - Home Health Services Reason For Visit: Right Knee Osteoarthritis Discharge Diagnosis: Right Knee Replacement Activity: Per Instructions section Weightbearing: Full weightbearing Non-emergency contact: Surgeon Call non-emergency contact if: you have any medication questions Follow-up/Referrals: Bobbi Morel MD [Primary Care Provider] - Diet: Regular Addtl Attending Provider Instructions: ACTIVITY RECOMMENDATIONS: Diet: * You may resume previous diet. Physical Therapy: * You will go to physical therapy three times each week for four to six weeks after your surgery in order to regain your knee range of motion and to retrain your knee to work properly. * It is just as important to make sure you are getting your knee perfectly straight as it is to regain your knee bend. * Taking a pain pill an hour before therapy can help you have a more productive and comfortable therapy session. Home Exercise: * You were shown a series of exercises (heel props, heel slides, etc.) in the hospital. Do these exercises three to four times each day including the exercises you were shown in physical therapy. Walking: * Get up and walk several times each day. For the first four weeks, try not to stand or walk for more than one hour at a time. If you do stand or walk for more than one hour, you will not hurt anything, but your knee and leg will likely swell. * As you feel comfortable, you may change from the walker or crutches to a cane and then to independent walking. MEDICATIONS: New Medicine: * You will likely be taking one or more of these medications: 1. Oxycodone - A quick and shorter-acting pain medication. Take one to two tablets every six hours to lessen your pain. 2. Aspirin - Thins your blood to lessen the chance of forming a blood clot. * The most common side effects of pain medicine and iron are nausea and constipation. If nausea or constipation is too much of a problem or if you have any questions about your new medicines or doses, call [facility] at . We will try to help you manage these issues. "VERY IMPORTANT TO READ AND REVIEW" Pain: * The immediate post-operative period after knee replacement surgery is often quite painful. * You are given a prescription for pain medicine. You should take it, as directed, when you need it, especially before physical therapy and before going to bed. Pain that interferes with sleep is very common and can last several months. * You will likely need pain medicine for the first four to six weeks. It will not stop all of the pain. The pain will lessen and as you feel better, you may change to milder pain medicine such as Tylenol. * The most common side effects of pain medicine are nausea and constipation, so don't take more than you need. SPECIAL CARE INSTRUCTIONS: TEDs/Elastic Stockings: * The white elastic stockings help limit swelling and prevent blood clots from forming in your legs. The more you wear them, the more they work. * Wear them for six weeks after knee replacement surgery and four weeks after partial knee replacement. Incision Site Care: * Remove dressing postoperative day 2 and then shower. Keep direct shower pressure off the incision site. * After showering, cover lucien with dry gauze and change daily or more frequently if the dressing is getting saturated with drainage. * Use the BRADY stockings to hold dressing in place. DO NOT apply tape on the skin. * May completely stop using bandage if wound is dry and no drainage * Sargeant are removed between 2 and 3 weeks post-op. If your follow-up appointment is made before 2 weeks, please have your appointment re- scheduled. It is too early to remove the lucien. Prevention of Infection: * Take antibiotics one hour before any dental cleaning, dental work, urological procedure, gastrointestinal procedure or any invasive surgery in order to prevent your new joint from getting infected. * You may get the antibiotics from the doctor performing the procedure or you may call our office at [phone] before and we will call in a prescription to the pharmacy of your choice. Things to Watch For: * Drainage from the incision site that occurs more than one week after your surgery. * Severely increased knee/leg pain or swelling. * Increased redness at the incision site. * Fever above 102 degrees Fahrenheit. * Unusual chest pain or shortness of breath. * Unusual pain or burning with urination. Call [facility] at [phone] with any of the above problems or if you have any questions about your medicines or recovery. FOLLOW UP VISIT: Make an appointment to see your doctor for approximately two weeks after surgery for a progress check and staple removal by calling the office at [phone]. Pending Studies at Discharge: No Stand-Alone Forms: My [facility], Pain - Opioid Pain Management, Smoking Cessation Medications and DC Order Prescriptions: Continued rosuvastatin 5 mg tablet See Rx Instructions .ROUTE .COMPLEX Qty: 36 3RF Dose Instruction: TAKE ONE TABLET ON TUESDAY, TUESDAY AND TUESDAY Rx Instructions: TAKE ONE TABLET ON TUESDAY, TUESDAY AND TUESDAY oxycodone 5 mg tablet 5 - 10 mg PO Q6 PRN (Reason: pain) Qty: 40 0RF Rx Instructions: Take as needed for pain ondansetron 4 mg tablet,disintegrating 4 mg PO Q8 PRN (Reason: nausea) Qty: 20 1RF Rx Instructions: Take as needed for nausea ketorolac 10 mg tablet 10 mg PO Q6 5 Days Qty: 20 0RF Rx Instructions: Take 4 times per day with food for 5 days to lessen pain and swelling. sennosides [Senokot] 8.6 mg tablet 8.6 mg PO BID 14 Days Qty: 28 0RF Rx Instructions: Take two times a day to prevent/treat constipation acetaminophen [Tylenol Extra Strength] 500 mg tablet 1,000 mg PO TID 30 Days Qty: 180 0RF Rx Instructions: Take 3 times per day to lessen pain. aspirin [Nandini Low Dose Aspirin] 81 mg tablet,delayed release (DR/EC) 81 mg PO BID 45 Days Qty: 90 0RF Rx Instructions: Take to prevent blood clots. cefadroxil 500 mg capsule 500 mg PO BID 7 Days Qty: 14 0RF Rx Instructions: Take 1 cap twice a day to prevent infection epinephrine 0.3 mg/0.3 mL auto-injector 0.3 mg IM .COMPLEX PRN (Reason: anaphylaxis) Qty: 2 1RF Patient Comments: this was for a bee sting, pt is a configuration developer Rx Instructions: 0.3 mg intramuscularly once but repeat dose x1 in 5-15min if needed PRN; After first injection, proceed to the ER Saccharomyces boulardii [Daily Probiotic (S. boulardii)] 250 mg capsule 250 mg PO BID (DME) Wheeled Walker Misc See Rx Instructions .MEDSUPPLY Qty: 1 0RF Rx Instructions: As directed multivitamin Tablet 1 tab PO QAM Fish Oil 120 mg-180 mg- 60 mg-1,200 mg Capsule,Delayed Release(Dr/Ec) 1 cap PO QAM aspirin 81 mg Tablet,Delayed Release (Dr/Ec) 81 mg PO QAM glucosamine-chondroitin [Osteo Bi-Flex] 250-200 mg Tablet 1 tab PO DAILY Rx Instructions: give after food/meal coenzyme Q10 [Co Q-10] 100 mg Capsule 100 mg PO DAILY psyllium husk 0.52 gram Capsule 0.52 g PO PM CholestOff Complete 300-100 mg Capsule PO Krames/Other Patient Handouts: DVT Post Op Prevention Admission Data Admit Date/Time: 09/11/24 10:53 Attending Provider: Alexi Alvares Admit Provider: lAexi Alvares Primary Care Provider: Bobbi Morel Other Providers: [facility],Home Health Other Interventions: Discharge Summary Assessment (RN) Last Done: 09/12/24 09:31
== END 2024-09-12 12:39 | disposition home health service (06) ==
LOC: 3W 06:31 → ASU 06:31